=== PATIENT | male | born 1955 | race Caucasian/White ===

== ENCOUNTER 2024-09-26 11:10 | Day surgery (SDC) | payer OTHER ==
[2024-09-26] MEDS ORDERED: Tropicamide 1% 15 ML BOTTLE ONE (11:29)
== END 2024-09-26 12:43 | disposition home or self-care (01) ==
LOC: SDC 11:10
PROVIDERS: ATTEND Ophthalmology
PROC: 085J3ZZ Destruction of Right Lens, Percutaneous Approach (ICD-10-PCS; principal; 2024-09-26)
PROC: 085K3ZZ Destruction of Left Lens, Percutaneous Approach (ICD-10-PCS; principal; 2024-09-26)
DX: H26.493 Other secondary cataract, bilateral (principal); Z96.1 Presence of intraocular lens